=== PATIENT | male | born 1990 | race Hispanic/Latino ===

== ENCOUNTER 2019-10-24 06:50 | Emergency (ER) | payer OTHER, SELFPAY ==
[2019-10-24 06:57] VITALS: BP 150/92; PULSE 77; RESP 17; TEMP 36.7; O2SAT 100
--- NOTE | 2019-10-24 08:42 | ED.EAR ---
HPI - Ear Problem General Chief complaint: Ear Stated complaint: LEFT EAR PAIN Time Seen by Provider: 10/24/19 07:33 Source: patient Mode of arrival: ambulatory Limitations: no limitations History of Present Illness HPI Narrative: Patient is a 29-year-old male who presents to the emergency department with complaint of left ear pain. Patient reports onset of symptoms a couple of days ago. Patient has a toothache and a left lower molar and has scheduled a dental appointment. Patient reports recent upper respiratory symptoms consisting of a fever 3 days ago, with no recurrent fever, cough, and rhinorrhea. Patient use some eardrops which did seem to help. Complaint: ear pain Location: left ear Duration: constant Relieving factors: ear drops Discharge from ear: Reports no Associated symptoms ear: tooth pain and rhinorrhea Treatment prior to arrival: eardrops Related Data Home Medications Medication Instructions Recorded Confirmed No Home Medications 10/24/19 10/24/19 Allergies Allergy/AdvReac Type Severity Reaction Status Date / Time No Known Allergies Allergy Unknown Unverified 10/24/19 06:52 Review of Systems Review of Systems: All systems reviewed & are unremarkable except as noted in HPI and below Constitutional: Constitutional: Reports fever(s) ENT: Reports nasal discharge Respiratory: Respiratory: Reports cough PMFSH Past Medical History Medical History (Updated 10/24/19 @ 15:17 by Lauren Gaston MD) No significant past medical history Surgical History Surgical History (Updated 10/24/19 @ 15:17 by Lauren Gaston MD) No significant past surgical history Social History Social History (Updated 10/24/19 @ 15:18 by Lauren Gaston MD) Smoking status: Current every day smoker Tobacco type: cigarettes Gender identity (if verbalized by the patient): Male Exam Const: General: cooperative, no acute distress and alert Nutritional Appearance: well nourished Orientation/consciousness: patient oriented x3 Limitations: no limitations HENMT: Ears: external ears normal, TM's normal bilaterally and EAC's normal Mouth: Yes lip normal and Yes moist mucous membranes Teeth and gingiva: gingiva normal and caries (#18) Resp: Effort & Inspection: normal respiratory effort Skin: General skin exam: normal color Neuro: General: patient oriented x3 Cognition (Neuro): normal cognition Speech: normal speech Extrem: General: normal to inspection, full ROM and no clubbing, cyanosis or edema Psych: Mental Status: mental status grossly normal Affect: normal affect Attitude: cooperative Course Course Emergency Course: Patient with toothache and earache. Dental caries noted on exam. No swelling present surrounding his decayed tooth. Ear normal in appearance. Patient has dental appointment and will follow-up. Vital Signs Vital signs: Vital Signs Temperature 98.1 F 10/24/19 06:57 Pulse Rate 77 10/24/19 06:57 Respiratory Rate 17 10/24/19 06:57 Blood Pressure 150/92 H 10/24/19 06:57 Pulse Oximetry 100 10/24/19 06:57 Temperature 98.1 F 10/24/19 06:57 Pulse Rate 68 10/24/19 08:50 Respiratory Rate 16 10/24/19 08:50 Blood Pressure 137/82 10/24/19 08:50 Pulse Oximetry 99 10/24/19 08:50 Medical Decision Making Vital Signs Vital Signs: Vital Signs Temperature 98.1 F 10/24/19 06:57 Pulse Rate 77 10/24/19 06:57 Respiratory Rate 17 10/24/19 06:57 Blood Pressure 150/92 H 10/24/19 06:57 Pulse Oximetry 100 10/24/19 06:57 Temperature 98.1 F 10/24/19 06:57 Pulse Rate 68 10/24/19 08:50 Respiratory Rate 16 10/24/19 08:50 Blood Pressure 137/82 10/24/19 08:50 Pulse Oximetry 99 10/24/19 08:50 Critical Care Time Critical Care Time Critical Care Time: No Discharge Plan Discharge Clinical Impression: Otalgia of left ear, Toothache Patient Disposition: Home, Self-Care Condition: Stable Instructions:
[2019-10-24 08:50] VITALS: BP 137/82; PULSE 68; RESP 16; O2SAT 99
== END 2019-10-24 09:00 | disposition home or self-care (01) ==
PROVIDERS: Emergency Provider Emergency Medicine
DX: H92.02 Otalgia, left ear (principal); K08.89 Other specified disorders of teeth and supporting structures; F17.210 Nicotine dependence, cigarettes, uncomplicated
CPT/HCPCS: 99281

== ENCOUNTER 2019-12-03 08:50 | Emergency (ER) | payer OTHER, SELFPAY ==
--- NOTE | ~2019-12-03 | XR_ITS ---
EXAMINATION: XR chest 1V portable INDICATION: Cough and fever TECHNIQUE: Portable AP chest at 0908 hours COMPARISON: 05/16/2011 FINDINGS: The lungs are free of acute opacities. There is no pleural effusion or pneumothorax. The ca rdiomediastinal silhouette is normal. The visualized bones and soft tissues are unremarkable. IMPRESSION: 1. No acute cardiopulmonary abnormality. Reviewed, dictated and finalized at location B.
--- NOTE | 2019-12-03 09:03 | ED.SOB ---
HPI - SOB/Dyspnea General Chief Complaint: Upper Respiratory Infection Stated Complaint: cough, fever Time Seen by Provider: 12/03/19 08:55 History of Present Illness HPI Narrative: 29 yo previously healthy mail presents by private vehicle c/o 4 days of cough, congestion, fever, and dyspnea. He does not know of any sick contacts, but takes public transit daily. He has been usualy his celsa albuterol nebulizer with some improvement. He quit smoking about 1 month ago. Related Data Allergies Allergy/AdvReac Type Severity Reaction Status Date / Time No Known Allergies Allergy Unknown Verified 12/03/19 09:09 Review of Systems Review of Systems: All systems reviewed & are unremarkable except as noted in HPI and below Constitutional: Constitutional: Reports chills, Denies fatigue and Reports fever(s) Eyes: Eyes: Reports no additional eye complaints ENT: Reports nasal congestion and Denies sore throat Cardiovascular: Cardiovascular: Denies chest pain Respiratory: Respiratory: Reports cough, Reports dyspnea and Reports wheezing Gastrointestinal: Gastrointestinal: Denies abdominal pain, Denies nausea and Denies vomiting Neurologic: Denies dizziness and Denies weakness PMFSH Past Medical History Medical History No significant past medical history Surgical History Surgical History No significant past surgical history Social History Social History (Updated 12/03/19 @ 12:23 by Martin Burt MD) Smoking status: Former smoker Tobacco type: cigarettes Smoking end date: 11/02/19 Gender identity (if verbalized by the patient): Male Exam Const: General: no acute distress, alert and ill appearing acutely Nutritional Appearance: well nourished Orientation/consciousness: patient oriented x3 HENMT: Head: normal to inspection Resp: Effort & Inspection: normal respiratory effort Auscultation: clear to auscultation bilaterally Cardio: Rate: regular rate Rhythm: regular rhythm GI: GI Palp: Yes Soft to palpation and No Tenderness to palpation present (GI) Skin: General skin exam: normal color Neuro: General: patient oriented x3 and moves all extremities Speech: normal speech Extrem: General: normal to inspection and no edema Course Vital Signs Vital signs: Vital Signs Temperature 36.4 C 12/03/19 09:04 Pulse Rate 56 L 12/03/19 09:04 Respiratory Rate 18 12/03/19 09:04 Blood Pressure 141/101 H 12/03/19 09:04 Pulse Oximetry 100 12/03/19 09:04 Temperature 36.4 C 12/03/19 09:04 Pulse Rate 63 12/03/19 10:28 Respiratory Rate 14 12/03/19 10:28 Blood Pressure 116/90 12/03/19 10:28 Pulse Oximetry 100 12/03/19 10:28 MDM - SOB/Dyspnea MDM Narrative Medical decision making narrative: CXR clear. symptoms certainly concerning for COVID. Test sent to lab. He is not hypoxic and has negative CXR. No indication for admission at this time. Will send him home to self quarantine pending test results. Differential Diagnosis Differential diagnosis: Likely community acquired pneumonia and other (Bronchitis, COVID-19) Medical Records Attestation: I reviewed the patient's medical records. Lab Data Attestation: I reviewed the patient's lab results. Labs: Lab Results 12/03/19 Range/Units 09:40 SARS-CoV-2 RNA (RT-PCR) Pending Influenza A Screen Negative Reference Range: Negative Influenza B Screen Negative Reference Range: Negative Discharge Plan Discharge Clinical Impression: Acute bronchitis Qualifiers: Bronchitis organism: unspecified organism Qualified Code(s): J20.9 - Acute bronchitis, unspecified Patient Disposition: Home, Self-Care Condition: Stable Instructions: Acute Bronchitis (ED) Prescriptions: New albuterol sulfate 90 mcg/actuation aerosol powdr breath activated 2 inhalation INH
[2019-12-03 09:04] VITALS: BP 141/101; PULSE 56; RESP 18; TEMP 36.4; O2SAT 100
[2019-12-03 10:28] VITALS: BP 116/90; PULSE 63; RESP 14; O2SAT 100
[2019-12-04 12:22] LABS: SARS-CoV-2 RNA PCR Negative
== END 2019-12-03 10:28 | disposition home or self-care (01) ==
PROVIDERS: Emergency Provider Emergency Medicine; PCP Emergency Medicine
DX: J20.9 Acute bronchitis, unspecified (principal); Z87.891 Personal history of nicotine dependence; Z20.828 Contact with and (suspected) exposure to other viral communicable diseases
CPT/HCPCS: 71045; 87635; 87804; 99283; U0003

== ENCOUNTER 2020-03-09 13:38 | Emergency (ER) | payer OTHER, SELFPAY ==
--- NOTE | ~2020-03-09 | XR_ITS ---
EXAMINATION: XR chest 1V portable INDICATION: Shortness of breath and wheezing TECHNIQUE: Portable AP chest at 1749 hours COMPARISON: 12/03/2019 FINDINGS: The lungs are free of acute opacities. There is no pleural effusion or pneumothorax. The ca rdiomediastinal silhouette is normal. The visualized bones and soft tissues are unremarkable. IMPRESSION: 1. No acute cardiopulmonary abnormality. Reviewed, dictated and finalized at location A.
[2020-03-09 13:57] VITALS: BP 159/93; PULSE 90; RESP 18; TEMP 36.6; O2SAT 100
--- NOTE | 2020-03-09 15:53 | PC.NURSE ---
rn charge made aware that pcp called to request that pt be expidited to back
[2020-03-09 16:09] LABS: Basophils Absolute Auto 0.1 K/mm3 (0.0-0.1); Basophils Percent Auto 0.8 % (0.2-1.2); Eosinophils Absolute Auto 0.1 K/mm3 (0-0.3); Eosinophils Percent Auto 0.9 % (0-4.4); Hematocrit 46.7 % (42.0-52.0); Hemoglobin 16.1 g/dL (14.0-18.0); Immature Granulocyte Absolute 0.05 K/mm3 (0.00-0.031); Immature Granulocyte Percent A 0.5 % (0-0.5); Lymphocytes Absolute Auto 1.71 K/mm3 (0.9-3.2); Lymphocytes Percent Auto 16.7 % (18.3-44.2); Mean Corpuscular HGB Conc 34.5 g/dl (32-36); Mean Corpuscular Hemoglobin 30.3 pg (26-34); Mean Corpuscular Volume 87.9 fl (80-100); Mean Platelet Volume 9.7 fl (7.4-10.4); Monocytes Absolute Auto 0.6 K/mm3 (0.1-0.6); Monocytes Percent Auto 5.9 % (2.6-8.5); Neutrophils Absolute Auto 7.7 K/mm3 (1.3-6.7); Neutrophils Percent Auto 75.2 % (45.5-73.1); Platelet Count Result 323 k/mm3 (150-375); Red Blood Count 5.31 M/mm3 (4.6-6.20); Red Cell Distribution Width 13.1 % (11.5-14.5); White Blood Count 10.2 K/mm3 (4.5-10.0)
[2020-03-09 16:25] LABS: Alanine Aminotransferase 60 U/L (4-50); Albumin Level 5.2 g/dL (3.5-5.1); Alkaline Phosphatase 88 U/L (38-126); Aspartate Amino Transferase 34 U/L (17-59); Bilirubin,Total 0.9 mg/dL (0.2-1.3); Blood Urea Nitrogen 10 mg/dL (9-20); CRP 1.3 mg/dL (<1.0); Calcium 9.6 mg/dL (8.4-10.2); Carbon Dioxide 25 mmol/L (22-30); Chloride 103 mmol/L (98-107); Estimated CRCL calculation 131 ml/min; Estimated Glomerular Filt Rate > 60; Glucose 93 mg/dL (75-110); Potassium 4.6 mmol/L (3.4-5.0); Sodium 137 mmol/L (137-145)
--- NOTE | 2020-03-09 17:33 | ED.GENADULT ---
HPI - General Adult General Chief complaint: Shortness of Breath/Dyspnea <Regino Gutiérrez PA-C - Last Filed: 03/09/20 18:24> Stated complaint: cough, trouble breathing, covid exposure <Regino Gutiérrez PA-C - Last Filed: 03/09/20 18:24> Time Seen by Provider: 03/09/20 17:19 <Regino Gutiérrez PA-C - Last Filed: 03/09/20 18:24> Source: patient <Regino Gutiérrez PA-C - Last Filed: 03/09/20 18:24> Mode of arrival: ambulatory <Regino Gutiérrez PA-C - Last Filed: 03/09/20 18:24> Limitations: no limitations <Regino Gutiérrez PA-C - Last Filed: 03/09/20 18:24> History of Present Illness HPI narrative: Patient is a 29-year-old male who presents to emergency department for evaluation of continued upper respiratory symptoms was following with primary care today when he was referred back to emergency department for reevaluation of upper respiratory symptoms patient has continued to have cough and some dyspnea notes history of asthma denies tobacco abuse had had some congestion rhinorrhea was tested for COVID 1 week ago with negative results. Patient presents back in no distress resting comfortably in the room patient notes he has his rescue inhaler but has been out of his nebulized medication. Patient denies vomiting or diarrhea and is otherwise resting comfortably in the room in no distress upon arrival noting that he is feeling better since the onset of his symptoms <Regino Gutiérrez PA-C - Last Filed: 03/09/20 18:24> Related Data Allergies/adverse reactions: Allergies Allergy/AdvReac Type Severity Reaction Status Date / Time No Known Allergies Allergy Unknown Verified 03/09/20 18:10 <Regino Gutiérrez PA-C - Last Filed: 03/09/20 18:24> Review of Systems Review of Systems: All systems reviewed & are unremarkable except as noted in HPI and below <Regino Gutiérrez PA-C - Last Filed: 03/09/20 18:24> PMFSH Past Medical History Medical History: Medical History No significant past medical history <SASHA Stokes Last Filed: 03/09/20 18:24> Surgical History Surgical History: Surgical History No significant past surgical history <Regino Gutiérrez PA-C - Last Filed: 03/09/20 18:24> Social History Social History: Social History Smoking status: Former smoker Tobacco type: cigarettes Smoking end date: 11/02/19 Gender identity (if verbalized by the patient): Male <Regino Gutiérrez PA-C - Last Filed: 03/09/20 18:24> Exam Narrative: Exam Narrative: GENERAL: Well-appearing, well-nourished, and in no acute distress. HEAD: Normocephalic, atraumatic. EYES: PERRLA and EOMI. ENT: Nares clear, no rhinorrhea or epistaxis. Mucous membranes moist. Oropharynx without tonsillar hypertrophy exudate or other lesions. NECK: Supple. No adenopathy or masses. CHEST: Clear to auscultation. No respiratory distress. No wheezes rales or rhonchi HEART: Regular rate and rhythm. No murmur heard. Normal peripheral pulses. EXTREMITIES: Normal range of motion. No edema. SKIN: Warm, dry, no rash. NEURO: No focal deficits. Alert and oriented x3. Cranial nerves II through XII grossly intact PSYCH: Normal mood and affect. <Regino Gutiérrez PA-C - Last Filed: 03/09/20 18:24> Course Course Emergency Course: Patient in the room in no distress resting comfortably normal vital signs afebrile nontoxic-appearing no pneumonia seen on exam will be sent home for reevaluation by primary care pending COVID testing results <Regino Gutiérrez PA-C - Last Filed: 03/09/20 18:24> Vital Signs Vital signs: Vital Signs Temperature 97.8 F 03/09/20 13:57 Pulse Rate 90 03/09/20 13:57 Respiratory Rate 18 03/09/20 13:57 Blood Pressure 159/93 H 03/09/20 13:57 Pulse Oximetry 100 03/09/20 13:
[2020-03-09 18:10] VITALS: BP 141/98; PULSE 63; RESP 23; O2SAT 96
[2020-03-09 18:11] VITALS: PULSE 74
[2020-03-09 18:39] VITALS: BP 118/68; PULSE 75; RESP 16; O2SAT 100
[2020-03-10 15:06] LABS: SARS-CoV-2 RNA PCR Negative
== END 2020-03-09 18:40 | disposition home or self-care (01) ==
PROVIDERS: Emergency Medicine Emergency Medical Services; Emergency Provider General Practice; PCP Emergency Medicine
DX: J06.9 Acute upper respiratory infection, unspecified (principal); Z20.828 Contact with and (suspected) exposure to other viral communicable diseases; Z87.891 Personal history of nicotine dependence
CPT/HCPCS: 36415; 71045; 80053; 85025; 86140; 87635; 99283; C9803; U0003

== ENCOUNTER 2020-03-10 16:25 | Emergency (ER) | payer OTHER, SELFPAY ==
--- NOTE | 2020-03-10 16:27 | ECG_ITS ---
Measurements Intervals [place] Rate: 119 P: 17 WA: 104 QRS: 48 QRSD: 94 T: 34 QT: 299 QTc: 421 Interpretive Statements SINUS TACHYCARDIA MINIMAL Q WAVES- INFERIOR LEADS ABNORMAL ECG Electronically Signed On 03-11-2020 7:20:22 CDT by Hamzah Galindo D.O.
[2020-03-10 17:22] VITALS: BP 145/76; PULSE 90; RESP 18; TEMP 37; O2SAT 100
== END 2020-03-10 18:00 | disposition left against medical advice (07) ==
LOC: ANHED 17:58
PROVIDERS: Emergency Provider Emergency Medicine; PCP Emergency Medicine
DX: R94.31 Abnormal electrocardiogram [ECG] [EKG] (principal)
CPT/HCPCS: 93005; 99199

== ENCOUNTER 2020-04-15 21:31 | Emergency (ER) | payer OTHER, SELFPAY ==
--- NOTE | ~2020-04-15 | XR_ITS ---
EXAMINATION: XR chest 2V 04/15/2020 22:00 INDICATION: Shortness of breath. History of asthma. PROCEDURE: 2 view chest COMPARISON: 03/09/2020 FINDINGS: The lungs are clear. The cardiomediastinal silhouette is within normal limits. There are no pleural effusions. There is no pneumothorax suspected. IMPRESSION: 1: NO ACUTE CARDIOPULMONARY DISEASE. Reviewed, dictated and finalized at location A.
[2020-04-15 21:34] VITALS: BP 146/76; PULSE 91; RESP 20; TEMP 36.9; O2SAT 99
--- NOTE | 2020-04-15 21:39 | ECG_ITS ---
Measurements Intervals [place] Rate: 92 P: 47 WI: 137 QRS: 35 QRSD: 91 T: 31 QT: 350 QTc: 435 Interpretive Statements SINUS RHYTHM MINIMAL Q WAVES- INFERIOR LEADS ST ELEVATION IN DIFFUSE LEADS- PROBABLY EARLY REPOLARIZATION BORDERLINE ECG Electronically Signed On 04-16-2020 7:30:25 CDT by Hamzah Galindo D.O.
[2020-04-15 21:58] LABS: Basophils Absolute Auto 0.1 K/mm3 (0.0-0.1); Eosinophils Absolute Auto 0.5 K/mm3 (0-0.3); Eosinophils Percent Auto 6.6 % (0-4.4); Hematocrit 41.2 % (42.0-52.0); Hemoglobin 14.3 g/dL (14.0-18.0); Immature Granulocyte Absolute 0.02 K/mm3 (0.00-0.031); Immature Granulocyte Percent A 0.3 % (0-0.5); Lymphocytes Absolute Auto 1.99 K/mm3 (0.9-3.2); Lymphocytes Percent Auto 25.1 % (18.3-44.2); Mean Corpuscular HGB Conc 34.7 g/dl (32-36); Mean Corpuscular Hemoglobin 30.5 pg (26-34); Mean Corpuscular Volume 87.8 fl (80-100); Mean Platelet Volume 9.7 fl (7.4-10.4); Monocytes Absolute Auto 0.5 K/mm3 (0.1-0.6); Monocytes Percent Auto 6.7 % (2.6-8.5); Neutrophils Absolute Auto 4.8 K/mm3 (1.3-6.7); Neutrophils Percent Auto 60.3 % (45.5-73.1); Platelet Count Result 269 k/mm3 (150-375); Red Blood Count 4.69 M/mm3 (4.6-6.20); Red Cell Distribution Width 13.2 % (11.5-14.5); White Blood Count 7.9 K/mm3 (4.5-10.0)
[2020-04-15 22:09] LABS: Anion Gap 7 mmol/L (8-16); Blood Urea Nitrogen 17 mg/dL (9-20); Calcium 8.9 mg/dL (8.4-10.2); Carbon Dioxide 25 mmol/L (22-30); Chloride 106 mmol/L (98-107); Estimated CRCL calculation 84 ml/min; Estimated Glomerular Filt Rate > 60; Glucose 111 mg/dL (75-110); Potassium 3.8 mmol/L (3.4-5.0); Sodium 138 mmol/L (137-145)
[2020-04-15 22:35] VITALS: PULSE 98
--- NOTE | 2020-04-15 23:02 | ED.GENADULT ---
HPI - General Adult General Chief complaint: Shortness of Breath/Dyspnea Stated complaint: short of breath Time Seen by Provider: 04/15/20 22:14 History of Present Illness HPI narrative: Patient is a 29-year-old male who presents ER with shortness of breath. Patient has history of asthma. He has been flaring over the last week and a half. He ran out of his inhaler and is been using nebulizer treatments. Nebulizer treatments do help. Reports mild postnasal drip. No fevers or chills or sweats. No chest pain. Related Data Allergies Allergy/AdvReac Type Severity Reaction Status Date / Time No Known Allergies Allergy Unknown Verified 04/15/20 22:35 Review of Systems Review of Systems: All systems reviewed & are unremarkable except as noted in HPI and below Constitutional: Constitutional: Denies chills, Denies fever(s) and Denies weakness ENT: Reports nasal congestion and Reports sore throat Cardiovascular: Cardiovascular: Denies chest pain and Denies radiating jaw, neck or arm pain Respiratory: Respiratory: Denies cough, Reports dyspnea and Reports wheezing Gastrointestinal: Gastrointestinal: Denies nausea and Denies vomiting [facility] Past Medical History Medical History (Updated 04/15/20 @ 23:04 by Julián Akers MD) Asthma Surgical History Surgical History No significant past surgical history Social History Social History Smoking status: Former smoker Tobacco type: cigarettes Smoking end date: 11/02/19 Gender identity (if verbalized by the patient): Male Exam Narrative: Exam Narrative: GENERAL: Well-appearing, well-nourished, and in no acute distress. HEAD: Normocephalic, atraumatic. ENT: Mucous membranes moist. CHEST: Faint wheezing in the apices. No respiratory distress. HEART: Regular rate and rhythm. Normal peripheral pulses. EXTREMITIES: Normal range of motion. No edema. NEURO: Alert and oriented x3. PSYCH: Normal mood and affect. Course Course Emergency Course: Patient informed of results. Discharge with albuterol and prednisone. Vital Signs Vital signs: Vital Signs Temperature 98.4 F 04/15/20 21:34 Pulse Rate 91 04/15/20 21:34 Respiratory Rate 20 04/15/20 21:34 Blood Pressure 146/76 H 04/15/20 21:34 Pulse Oximetry 99 04/15/20 21:34 Temperature 98.4 F 04/15/20 21:34 Pulse Rate 98 04/15/20 22:35 Respiratory Rate 20 04/15/20 21:34 Blood Pressure 146/76 H 04/15/20 21:34 Pulse Oximetry 99 04/15/20 21:34 Medical Decision Making Vital Signs Vital Signs: Vital Signs Temperature 98.4 F 04/15/20 21:34 Pulse Rate 91 04/15/20 21:34 Respiratory Rate 20 04/15/20 21:34 Blood Pressure 146/76 H 04/15/20 21:34 Pulse Oximetry 99 04/15/20 21:34 Temperature 98.4 F 04/15/20 21:34 Pulse Rate 98 04/15/20 22:35 Respiratory Rate 20 04/15/20 21:34 Blood Pressure 146/76 H 04/15/20 21:34 Pulse Oximetry 99 04/15/20 21:34 Lab Data Result diagrams: 04/15/20 21:49 04/15/20 21:49 Labs: Lab Results 04/15/20 04/15/20 Range/Units 21:49 21:49 WBC 7.9 (4.5-10.0) K/mm3 RBC 4.69 (4.6-6.20) M/mm3 Hgb 14.3 (14.0-18.0) g/dL Hct 41.2 L (42.0-52.0) % MCV 87.8 (80-100) fl MCH 30.5 (26-34) pg MCHC 34.7 (32-36) g/dl RDW 13.2 (11.5-14.5) % Plt Count 269 (150-375) k/mm3 MPV 9.7 (7.4-10.4) fl Immature Gran % (Auto) 0.3 (0-0.5) % Neut % (Auto) 60.3 (45.5-73.1) % Lymph % (Auto) 25.1 (18.3-44.2) % [place] % (Auto) 6.7 (2.6-8.5) % Eos % (Auto) 6.6 H (0-4.4) % Baso % (Auto) 1.0 (0.2-1.2) % Lymph # (Auto) 1.99 (0.9-3.2) K/mm3 [place] # (Auto) 0.5 (0.1-0.6) K/mm3 Eos # (Auto) 0.5 H (0-0.3) K/mm3 Baso # (Auto) 0.1 (0.0-0.1) K/mm3 Abs Immat Gran (auto) 0.02 (0.00-0.031) K/mm3 Absolute Neuts (auto) 4.8 (1.3-6.7) K/mm3
[2020-04-15 23:20] VITALS: RESP 18
== END 2020-04-15 23:20 | disposition home or self-care (01) ==
PROVIDERS: Emergency Provider Emergency Medicine; PCP Emergency Medicine
DX: J45.901 Unspecified asthma with (acute) exacerbation (principal); Z87.891 Personal history of nicotine dependence
CPT/HCPCS: 36415; 71046; 80048; 85025; 93005; 99284

== ENCOUNTER 2022-07-07 12:27 | Outpatient (CLI) | payer OTHER, SELFPAY ==
[2022-07-07 10:34] LABS: Hemoglobin 16.1 g/dL (14.0-18.0); Mean Corpuscular HGB Conc 32.9 g/dl (32-36); Mean Corpuscular Hemoglobin 29.7 pg (26-34); Mean Corpuscular Volume 90.4 fl (80-100); Mean Platelet Volume 9.6 fl (7.4-10.4); Platelet Count Result 328 k/mm3 (150-375); Red Blood Count 5.42 M/mm3 (4.6-6.20); White Blood Count 5.7 K/mm3 (4.5-10.0)
[2022-07-07 10:48] LABS: CRP < 0.5 mg/dL (<1.0)
[2022-07-07 11:14] LABS: Erythrocyte Sedimentation Rate 1 mm/hr (0-20)
[2022-07-07 11:38] LABS: Thyroid Stimulating Hormone Reflex 0.574 uIU/mL (0.465-4.68)
[2022-07-15 16:19] LABS: Calprotectin, Stool <5 mcg/g
== END 2022-07-07 12:28 | disposition home or self-care (01) ==
LOC: ANHLAB 12:27
PROVIDERS: PCP Nurse Practitioner; Visit Provider Nurse Practitioner
DX: R79.89 Other specified abnormal findings of blood chemistry (principal); R19.5 Other fecal abnormalities; K92.1 Melena; K58.0 Irritable bowel syndrome with diarrhea
CPT/HCPCS: 36415; 83993; 84443; 85027; 85652; 86140

== ENCOUNTER 2022-11-10 16:08 | Emergency (ER) | payer OTHER, SELFPAY ==
--- NOTE | ~2022-11-10 | XR_ITS ---
XR lumbar spine min 4V DATE: 11/10/2022 17:44 INDICATION: Fall 5 days ago. Low back pain. TECHNIQUE: AP, lateral, bilateral oblique and coned lateral lumbosacral views COMPARISON: 02/07/2018 lumbar spine FINDINGS: No fracture or bone destruction, spondylolysis or spondylolisthesis. Multilevel mild degenerative disc disease. The sacroiliac joints are intact. IMPRESSION: Mild degenerative change; no fracture Reviewed, dictated and finalized at location A.
--- NOTE | ~2022-11-10 | XR_ITS ---
XR hip LT min 3V w AP pelvis DATE: 11/10/2022 17:44 INDICATION: Fall 5 days ago. Left low back pain, radiating down left lower extremity TECHNIQUE: AP pelvis. AP, lateral crosstable lateral views of left hip COMPARISON: None FINDINGS: No pelvic fracture or bone destruction. Normal alignment at the sacroiliac joints and pubic symphysis. Hip joint spaces are symmetric and well preserved. No fracture, dislocation, avascular ne crosis or bone destruction. IMPRESSION: Negative Reviewed, dictated and finalized at location A. IMPRESSION: Negative
[2022-11-10 16:43] VITALS: BP 155/93; PULSE 60; RESP 16; TEMP 36.5; O2SAT 100
--- NOTE | 2022-11-10 18:03 | ED.BACK ---
HPI - Back Pain/Injury General Chief Complaint: Back Pain/Injury Stated Complaint: back pain from injury Time Seen by Provider: 11/10/22 16:59 Source: patient Mode of arrival: ambulatory Limitations: no limitations History of Present Illness HPI Narrative: Patient is a 32-year-old male who presents to the ED with report of left low back pain. Patient reports he was playing indoor soccer with his family on Monday. He was running after the ball and trying to kick it with his right leg when he tripped and fell onto his left side. He did not hit his head or lose consciousness. He has been ambulatory since the fall, but complains of pain to his left low back. He states whenever he ambulates, the pain shoots down his left leg. He has been taking ibuprofen with minimal relief. Denies any bowel or bladder incontinence, saddle anesthesia, numbness, weakness, abdominal pain, nausea, vomiting, fevers. Related Data Allergies Allergy/AdvReac Type Severity Reaction Status Date / Time No Known Allergies Allergy Unknown Verified 07/07/22 09:23 Review of Systems Review of Systems: CONSTITUTIONAL: Denies fever, chills, or sweats. CARDIOVASCULAR: Denies chest pain. RESPIRATORY: Denies dyspnea. GASTROINTESTINAL: Denies abdominal pain, incontinence, nausea, vomiting, or diarrhea. GENITOURINARY: Denies incontinence, dysuria or hematuria. MUSCULOSKELETAL: See HPI. NEUROLOGIC: See HPI. All systems reviewed & are unremarkable except as noted in HPI and below PMFSH Past Medical History Medical History Asthma Hematochezia IBS (irritable bowel syndrome) Low TSH level Mucus in stool Surgical History Surgical History No significant past surgical history Family History Family History Daughter Asthma Unknown Crohn's disease Other Ulcerative (chronic) enterocolitis Social History Social History Smoking status: Former smoker Tobacco type: cigarettes Smoking end date: 11/02/19 Alcohol intake: never Substance use: never Substance use type: does not use Living arrangements: with family Occupation/Education: occupation Additional occupation/education comments: [employer] Gender identity (if verbalized by the patient): Male Exam Narrative: GENERAL: Well appearing, obese, non-toxic, in no acute distress. HEAD: Normocephalic, atraumatic. NECK: Supple. No adenopathy, no masses. RESPIRATORY: Airway patent, respirations nonlabored. CARDIOVASCULAR: Regular rate and rhythm without murmurs, rubs, or gallops. Pedal pulses 2+ and equal bilaterally. ABDOMINAL: Soft, nontender, nondistended, no hepatosplenomegaly. Normoactive BS. MUSCULOSKELETAL: Moves all extremities. Strength/ROM intact without gross deformities. No significant midline thoracic or lumbar spinal tenderness. Tenderness throughout left sided paraspinal musculature in lumbosacral region. SKIN: Warm, dry, normal color. No rashes. NEURO: A&O X3. Speech clear. Cranial nerves II-XII grossly intact. Steady gait. No ataxic movements. PSYCHIATRIC: Appropriate mood and affect. Normal interaction. Course Vital Signs Vital signs: Vital Signs Temperature 97.7 F 11/10/22 16:43 Pulse Rate 60 11/10/22 16:43 Respiratory Rate 16 11/10/22 16:43 Blood Pressure 155/93 H 11/10/22 16:43 Pulse Oximetry 100 11/10/22 16:43 Oxygen Delivery Room Air 11/10/22 16:43 Temperature 97.7 F 11/10/22 16:43 Pulse Rate 60 11/10/22 16:43 Respiratory Rate 16 11/10/22 16:43 Blood Pressure 155/93 H 11/10/22 16:43 Pulse Oximetry 100 11/10/22 16:43 Oxygen Delivery Room Air 11/10/22 16:43 MDM - Back Pain/Injury MDM Narrative Medical decision making narrative: Patient's pain is positional and localized to paraspinal
[2022-11-10] MEDS: KETOROLAC (*BKC) 60 MG/2 ML VIAL IM (18:22)
== END 2022-11-10 19:03 | disposition home or self-care (01) ==
PROVIDERS: Emergency Provider Physician Assistant; PCP Internal Medicine
DX: S39.012A Strain of muscle, fascia and tendon of lower back, initial encounter (principal); J45.909 Unspecified asthma, uncomplicated; W01.0XXA Fall on same level from slipping, tripping and stumbling without subsequent striking against object, initial encounter
CPT/HCPCS: 72110; 73502; 96372; 99284; J1885

== ENCOUNTER 2025-02-11 09:45 | Emergency (ER) | payer SELFPAY ==
--- NOTE | 2025-02-11 09:47 | ED_ITS ---
HPI - Skin/Abscess/Foreign Bdy General Chief complaint: Skin/Abscess/Foreign Body Stated complaint: Left Arm Skin Issues Time Seen by Provider: 02/11/25 09:47 Source: patient Mode of arrival: ambulatory Limitations: no limitations History of Present Illness HPI narrative: Patient is a 34-year-old male who presents with redness, warmth and swelling to left arm. Patient gave himself tattoos with new tattoo machinery 4 days ago. Since then the redness, warmth and swelling has only gotten worse. Related Data Allergies Allergy/AdvReac Type Severity Reaction Status Date / Time No Known Allergies Allergy Unknown Verified 02/11/25 10:04 Review of Systems 2 Review of Systems: All systems reviewed & are unremarkable except as noted in HPI and below Constitutional: Constitutional: Denies body ache(s), Denies chills, Denies fatigue, Denies fever(s), Denies headache(s), Denies malaise and Denies weakness Eyes: Eyes: Denies blurry vision, Denies irritation and Denies loss of vision ENT: Denies otalgia, Denies headache(s), Denies nasal discharge, Denies sinus pain and Denies sore throat Cardiovascular: Cardiovascular: Denies chest pain, Denies irregular heart rhythm and Denies dyspnea Respiratory: Respiratory: Denies dyspnea Gastrointestinal: Gastrointestinal: Denies abdominal pain, Denies melena, Denies hematochezia, Denies diarrhea, Denies nausea and Denies vomiting Musculoskeletal: Musculoskeletal: Denies back pain, Denies myalgias and Denies arthralgias Integumentary/Breasts: Skin/Breast: Denies pruritus, Reports erythema, Denies rash, Reports skin pain and Reports skin swelling Neurologic: Denies headache(s), Denies loss of vision and Denies weakness Psychiatric: Psychiatric: Reports no additional psychiatric complaints Endocrine: Endocrine: Denies fatigue PMFSH Past Medical History Medical History Mucus in stool Low TSH level Hematochezia IBS (irritable bowel syndrome) Asthma Surgical History Surgical History No significant past surgical history Family History Family History Daughter Asthma Unknown Crohn's disease Other Ulcerative (chronic) enterocolitis Social History Social History Smoking status: Former smoker Tobacco type: cigarettes Smoking end date: 11/02/19 Alcohol intake: never Substance use: never Substance use type: does not use Living arrangements: with family Occupation/Education: occupation Additional occupation/education comments: [employer] Gender identity (if verbalized by the patient): Male Comments At time of signature, agree with nursing past medical, surgical, social and family history. There is no relevant family history pertinent to the presenting complaint. Exam 2 Const: General: cooperative, healthy appearing, comfortable, no acute distress and well nourished Nutritional Appearance: well nourished O rientation/consciousness: patient oriented x3 Limitations: no limitations HENMT: Head: normal to inspection, normocephalic and atraumatic Ears: h earing grossly normal bilaterally and external ears normal Face/Nose/Sinus: N ormal external nose present, normal facial exam and face symmetric Face and sinus: normal facial exam and face symmetric Mouth: Yes lip normal Eyes: General: appearance normal, both eyes and all related structures A lignment and Position: alignment normal and position normal Periorbital: p eriorbital findings normal Eyelids: eyelids normal Pupils: Equal, round and reactive pupils present EOM: EOMs intact bilaterally Neck: Neck: normal visual inspection, full ROM and supple Chest: Chest palpation & inspection: normal inspection of the chest Resp: Effort & Inspection: normal respiratory effort and able to speak in complete sentences Auscultation: clear to auscultation bilaterally Cardio: Rate: regular rate Rhythm: regular rhythm Heart sounds: S1 normal heart sound present and S2 normal heart sound present GI: Inspection: normal to inspection Skin: General skin exam: normal color and no rashes or lesions noted Full body images: 1. 2x2 cm area of erythema, warmth and slight swelling surrounding at home tattoo. Neuro: General: patient oriented x3 and moves all extremities Cranial nerves: Yes Equal, round and reactive pupils present Speech: normal speech Gait exam (Neuro): Normal gait present Extrem: General: normal to inspection, full ROM and no edema Psych: Appearance: grossly normal and well kempt Mental Status: mental status grossly normal Speech and movement: Normal speech and movement present Affect: normal affect Attitude: cooperative Thought process: Normal thought process present Course Course Emergency Course: Patient is aware of diagnosis, understands and agrees to treatment plan. Anticipatory guidance given. Patient agrees to follow-up as directed and is aware of reasons to seek care at the emergency department. Portions of this record may have been created with voice recognition software Level of Care: Express Care Visit Vital Signs Vital signs: Vital Signs Temperature 37.3 C 02/11/25 09:53 Pulse Rate 63 02/11/25 09:53 Respiratory Rate 20 02/11/25 09:53 Blood Pressure 121/64 02/11/25 09:53 Pulse Oximetry 100 02/11/25 09:53 Oxygen Delivery Room Air 02/11/25 09:53 Temperature 37.3 C 02/11/25 09:53 Pulse Rate 63 02/11/25 09:53 Respiratory Rate 20 02/11/25 09:53 Blood Pressure 121/64 02/11/25 09:53 Pulse Oximetry 100 02/11/25 09:53 Oxygen Delivery Room Air 02/11/25 09:53 Reviewed MDM - Skin/Abscess/Foreign Bdy MDM Narrative Medical decision making narrative: Pt well hydrated appearing, in no respiratory distress, hemodynamically stable. Recommend supportive care. The patient is stable at time of discharge the clinical impression was discussed and the patient was given the opportunity to ask questions, which were addressed as completely as possible given the information available at present. Anticipatory guidance and return to care precautions were discussed and the importance of primary care follow-up was stressed and encouraged. The patient voiced understanding of the plan, indications to return, and the need for follow-up. Exam findings show no acute concerns or changes Patient is appropriate for outpatient treatment and follow-up. Differential Diagnosis Differential diagnosis: Likely allergic reaction to drug, cellulitis and contact dermatitis Medical Records Attestation: I reviewed the patient's medical records. Discharge Plan Discharge Clinical Impression: Tattoo reaction Cellulitis Qualifiers: Site of cellulitis: extremity Site of cellulitis of extremity: upper extremity Laterality: left Qualified Code(s): L03.114 - Cellulitis of left upper limb Patient Disposition: Home Condition: Stable Instructions: Diphtheria/Acellular Pertussis/Tetanus Booster Vaccine (By injection), Cellulitis (ED) Additional Instructions: Your tetanus shot was updated today Please follow up with your Primary Care Doctor within 48-72 hours - call for an appointment. Rest and elevate affected area; apply moist heat 3-4 times daily for 10-15 minutes. Clean with soap and water only; Avoid using alcohol and peroxide. Elevate the affected area if possible Please take Antibiotics as directed. For pain, you may take: Tylenol 650-1000mg by mouth every 4-6 hours. Do not exceed 4000mg in 24 hours. Advil (Ibuprofen) 600 mg by mouth every 6 hours. Do not exceed 2400mg in 24 hours. 8 AM: Tylenol 11 AM: Ibuprofen 2 PM: Tylenol 5 PM: Ibuprofen 8 PM: Tylenol 11 PM: Ibuprofen 2 AM: Tylenol 5 AM: Ibuprofen If you experience any worsening redness, swelling, streaking (red lines), fever or chills please go to the ER Patient Language: [place] Prescriptions: New cephalexin 500 mg capsule 500 mg PO QID 7 Days Qty: 28 0RF Follow-up/Referrals: Precious Haskins DO [Physician] - 3 Days (Establish care) Stand Alone Forms: Work/School Release IP Time of Disposition: 10:15
[2025-02-11 09:53] VITALS: BP 121/64; PULSE 63; RESP 20; TEMP 37.3; O2SAT 100
[2025-02-11] MEDS: TETANUS,DIPHTHERIA,AC PERTUSSIS ADULT (0.5 ML) BOOSTRIX IM (10:18)
== END 2025-02-11 10:25 | disposition home or self-care (01) ==
PROVIDERS: Emergency Provider Nurse Practitioner Family
DX: L03.114 Cellulitis of left upper limb (principal); Z87.891 Personal history of nicotine dependence; J45.909 Unspecified asthma, uncomplicated; Z23 Encounter for immunization
CPT/HCPCS: 90471; 90715; 99213; G0463

== ENCOUNTER 2025-07-31 14:03 | Emergency (ER) | payer OTHER, SELFPAY ==
--- NOTE | ~2025-07-31 | XR_ITS ---
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 Findings: No acute fracture or malalignment. No significant degenerative changes. Soft tissues unremarkable. Impression: No acute fracture or malalignment. Reviewed, dictated and finalized at location P. CLEANER Impression: No acute fracture or malalignment.
[2025-07-31 14:18] VITALS: BP 131/86; PULSE 69; RESP 20; TEMP 36.7; O2SAT 100
--- NOTE | 2025-07-31 14:37 | ED_ITS ---
HPI - Extremity Injury (Lower) General Chief Complaint: Extremity Injury, Lower Stated Complaint: WC Left Knee Pain Time Seen by Provider: 07/31/25 14:05 Source: patient Mode of arrival: ambulatory Limitations: no limitations History of Present Illness HPI Narrative: Patient is a 34-year-old male who presents with left knee pain after to sting knee lifting a box of dog food off of a truck at work. Reports lateral side of knee pain to touch but is not painful to walk. Denies any numbness, tingling, weakness. denies any swelling or bruising. Related Data Home Medications ?Medication ?Instructions ?Recorded ?Confirmed ?Last Taken ?Type No Home Medications 07/31/25 07/31/25 U nknown History Allergies Allergy/AdvReac Type Severity Reaction Status Date / Time No Known Allergies Allergy Unknown Verified 07/31/25 14:08 Review of Systems Review of Systems: All systems reviewed & are unremarkable except as noted in HPI and below Constitutional: Constitutional: Denies body ache(s), Denies chills, Denies fatigue, Denies fever(s), Denies headache(s), Denies malaise and Denies weakness Eyes: Eyes: Denies blurry vision, Denies irritation and Denies loss of vision ENT: Denies otalgia, Denies headache(s), Denies nasal discharge, Denies sinus pain and Denies sore throat Cardiovascular: Cardiovascular: Denies chest pain, Denies irregular heart rhythm and Denies dyspnea Respiratory: Respiratory: Denies dyspnea Gastrointestinal: Gastrointestinal: Denies abdominal pain, Denies melena, Denies hematochezia, Denies diarrhea, Denies nausea and Denies vomiting Musculoskeletal: Musculoskeletal: Denies back pain, Denies myalgias and Reports arthralgias Integumentary/Breasts: Skin/Breast: Denies pruritus and Denies rash Neurologic: Denies headache(s), Denies loss of vision and Denies weakness Psychiatric: Psychiatric: Reports no additional psychiatric complaints Endocrine: Endocrine: Denies fatigue PMFSH Past Medical History Medical History Mucus in stool Low TSH level Hematochezia IBS (irritable bowel syndrome) Asthma Surgical History Surgical History No significant past surgical history Family History Family History Daughter Asthma Unknown Crohn's disease Other Ulcerative (chronic) enterocolitis Social History Social History Smoking status: Former smoker Tobacco type: cigarettes Smoking end date: 11/02/19 Alcohol intake: never Substance use: never Substance use type: does not use Living arrangements: with family Occupation/Education: occupation Additional occupation/education comments: [employer] Gender identity (if verbalized by the patient): Male Comments At time of signature, agree with nursing past medical, surgical, social and family history. There is no relevant family history pertinent to the presenting complaint. Exam Const: General: cooperative, healthy appearing, comfortable, no acute distress and well nourished Nutritional Appearance: well nourished Orientation/consciousness: patient oriented x3 Limitations: no limitations HENMT: Head: normal to inspection, normocephalic and atraumatic Ears: hearing grossly normal bilaterally and external ears normal Face/Nose/Sinus: Normal external nose present, normal facial exam and face symmetric Face and sinus: normal facial exam and face symmetric Mouth: Yes lip normal Eyes: General: appearance normal, both eyes and all related structures Alignment and Position: alignment normal and position normal Periorbital: periorbital findings normal Eyelids: eyelids normal Pupils: Equal, round and reactive pupils present EOM: EOMs intact bilaterally Neck: Neck: normal visual inspection, full ROM and supple Chest: Chest palpation & inspection: normal inspection of the chest Resp: Effort & Inspection: normal respiratory effort and able to speak in complete sentences Auscultation: clear to auscultation bilaterally Cardio: Rate: regular rate Rhythm: regular rhythm Heart sounds: S1 normal heart sound present and S2 normal heart sound present GI: Inspection: normal to inspection Skin: General skin exam: normal color and no rashes or lesions noted Neuro: General: patient oriented x3 and moves all extremities Cranial nerves: Yes Equal, round and reactive pupils present Speech: normal speech Gait exam (Neuro): Normal gait present Extrem: General: normal to inspection, full ROM and no edema Left lower extremity: hip/thigh Details: normal to inspection and normal ROM; no tenderness, knee Details: normal to inspection, tenderness Location: of the lateral joint line, normal ROM and knee ligament exam normal Details: anterior drawer test normal, posterior drawer test normal, valgus stress test normal and varus stress test normal; no swelling and ankle Details: normal to inspection and normal ROM; no tenderness and no swelling Psych: Appearance: grossly normal and well kempt Mental Status: mental status grossly normal Speech and movement: Normal speech and movement present Affect: normal affect Attitude: cooperative Thought process: Normal thought process present Course Course Emergency Course: Patient is aware of diagnosis, understands and agrees to treatment plan. Anticipatory guidance given. Patient agrees to follow-up as directed and is aware of reasons to seek care at the emergency department. Portions of this record may have been created with voice recognition software Level of Care: Express Care Visit Vital Signs Vital signs: Vital Signs Temperature 36.7 C 07/31/25 14:18 Pulse Rate 69 07/31/25 14:18 Respiratory Rate 20 07/31/25 14:18 Blood Pressure 131/86 07/31/25 14:18 Pulse Oximetry 100 07/31/25 14:18 Oxygen Delivery Room Air 07/31/25 14:18 Temperature 36.7 C 07/31/25 14:18 Pulse Rate 69 07/31/25 14:18 Respiratory Rate 20 07/31/25 14:18 Blood Pressure 131/86 07/31/25 14:18 Pulse Oximetry 100 07/31/25 14:18 Oxygen Delivery Room Air 07/31/25 14:18 [facility] MDM Narrative Medical decision making narrative: rosalba wrap applied Pt well hydrated appearing, in no respiratory distress, hemodynamically stable. Recommend supportive care. The patient is stable at time of discharge the clinical impression was discussed and the patient was given the opportunity to ask questions, which were addressed as completely as possible given the information available at present. Anticipatory guidance and return to care precautions were discussed and the importance of primary care follow-up was stressed and encouraged. The patient voiced understanding of the plan, indications to return, and the need for follow-up. Exam findings show no acute concerns or changes Patient is appropriate for outpatient treatment and follow-up. Differential Diagnosis Differential Diagnosis: Differential diagnostic considerations for lower extremity injury include ankle sprain/strain, acute internal derangement of knee, fracture of femur, fracture of hip, puncture wound of foot, fracture of toe, fracture of ankle, tendon rupture (achilles/patellar/quadriceps). 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 Findings: No acute fracture or malalignment. No significant degenerative changes. Soft tissues unremarkable. Impression: No acute fracture or malalignment. Reviewed, dictated and finalized at location P. DICATION SPECIALIST Discharge Plan Discharge Clinical Impression: Acute internal derangement of knee Patient Disposition: Home Condition: Stable Instructions: Knee Pain (ED) Additional Instructions: Xray showed no fracture. Minimize activities that aggravate the condition The RICE protocol. Follow the RICE protocol as soon as possible after your injury: Rest your knee by not walking on it. Ice should be immediately applied to keep the swelling down. It can be used for 20 to 30 minutes, three or four times daily. Do not apply ice directly to your skin. Compression dressings, bandages or rosalba-wraps will immobilize and support your injured knee. Elevate your knee above the level of your heart as often as possible during the first 48 hours. Medication: Nonsteroidal anti-inflammatory drugs (NSAIDs) such as ibuprofen and naproxen can help control pain and swelling. Because they improve function by both reducing swelling and controlling pain, they are a better option for mild sprains than narcotic pain medicines. Please schedule a follow-up visit with your personal physician for further evaluation and treatment within 1week OR If your symptoms persist, change or worsen significantly before you can contact your personal physician then please, without delay, go to the emergency department for further evaluation. Patient Language: [place] Prescriptions: No Action No Home Medications Follow-up/Referrals: James Hanley MD [Physician, Family Practice] - 3 Days Referral Note: establish car Stand Alone Forms: Work/School Release IP Time of Disposition: 15:22
== END 2025-07-31 15:30 | disposition home or self-care (01) ==
PROVIDERS: Emergency Provider Nurse Practitioner Family
DX: M23.92 Unspecified internal derangement of left knee (principal); Z87.891 Personal history of nicotine dependence; J45.909 Unspecified asthma, uncomplicated
CPT/HCPCS: 73564; 99213; G0463